=== PATIENT | male | born 1995 | race Two or more races ===

== ENCOUNTER 2016-11-27 04:44 | Emergency (ER) | payer MEDICAID, OTHER ==
[~2016-11-27] VITALS: Ht 144.8 cm; Wt 52.2 kg
[2016-11-27] MEDS ORDERED: ONDANSETRON HCL/PF 4 MG/2 ML VIAL IVP ONE (05:00)
[2016-11-27] MEDS ORDERED: HYDROMORPHONE INJ 2 MG/ML DISP.SYRIN IV ONE (05:00)
[2016-11-27] MEDS ORDERED: ONDANSETRON HCL/PF 4 MG/2 ML VIAL ONE ×2 (05:04→05:27)
[2016-11-27] MEDS ORDERED: HYDROMORPHONE 1 MG/1 ML DISP.SYRIN ONE (05:04)
[2016-11-27 05:24] LABS: BASOPHILS % (AUTO) 0.1 % (0.0-2.0); DIFF TOTAL % 100 %; EOSINOPHILS % (AUTO) 0.2 % (0.0-6.0); HEMATOCRIT 50 % (39-51); HEMOGLOBIN 16.8 g/dL (13.5-17.5); LYMPHOCYTES # (AUTO) 0.9 /CMM (0.8-4.8); LYMPHOCYTES % (AUTO) 7.1 % (20.0-44.0); MEAN CORPUSCULAR HEMOGLOBIN 32 PG (26.0-33.0); MEAN CORPUSCULAR HGB CONC 34 g/dl (31.0-36.0); MEAN CORPUSCULAR VOLUME 97 fL (80-96); MONOCYTES % (AUTO) 16.3 % (2.0-12.0); NEUTROPHILS # (AUTO) 9.2 /CMM (1.8-8.9); NEUTROPHILS % (AUTO) 76.3 % (43.0-81.0); PLATELET COUNT (AUTO) 211 /CMM (150-450); RED BLOOD CELL COUNT(AUTO) 5.18 MIL/uL (4.5-6.0); WHITE BLOOD COUNT (AUTO) 12.1 K/uL (4.3-11.0)
[2016-11-27] MEDS ORDERED: IV NS 0.9% 1,000 ML ONE (05:28)
[2016-11-27] MEDS ORDERED: IV SET PRIMARY 1 EA INFUS.SET MC ONE (05:28)
[2016-11-27 05:37] LABS: CALCIUM, SERUM 8.4 mg/dL (8.5-10.1); POTASSIUM 3.3 mmol/L (3.5-5.1)
[2016-11-27 05:42] LABS: PROTHROMBIN TIME 10.8 SECS (9.5-12.7)
[2016-11-27 05:44] LABS: ALBUMIN 3.7 g/dL (3.4-5.0); BILIRUBIN,DIRECT 0.1 mg/dL (0.0-0.2); BILIRUBIN,TOTAL 0.3 mg/dL (0.2-1.0); INDIRECT BILIRUBIN 0.2 mg/dL (0.0-1.1); TOTAL PROTEIN, SERUM 7.4 g/dL (6.4-8.2)
[2016-11-27] MEDS ORDERED: IV NS 0.9% 1,000 ML BAG IV ONE (06:00)
[2016-11-27] MEDS ORDERED: ONDANSETRON HCL/PF 4 MG/2 ML VIAL IV ONE (06:00)
[2016-11-27 06:19] VITALS: BP 118/76
[2016-11-27 10:28] LABS: BAND % (MANUAL) 3 % (0.0-5.0); LYMPHOCYTES % (MANUAL) 8 % (16-48)
[2016-11-27 10:29] LABS: EOSINOPHILS % (MANUAL) 4 % (0-4)
[2016-11-27 10:30] LABS: PLATELET ESTIMATE ADEQUATE
== END 2016-11-27 06:20 | disposition home or self-care (01) ==
LOC: ER 04:46
DX: K80.20 Calculus of gallbladder without cholecystitis without obstruction (principal)
CPT/HCPCS: 36415; 76705; 80048; 80076; 83690; 85025; 85730; 96361; 96374; 96375; 99285; A4606; J1170; J2405; J7030; Z7610

== ENCOUNTER 2018-01-10 04:47 | Emergency (ER) | payer MEDICAID, OTHER ==
[~2018-01-10] VITALS: Ht 149.9 cm; Wt 56.7 kg
--- NOTE | 2018-01-10 04:47 | NUR ---
BIBMOTHER; PT C/O EPIGASTRIC PAIN 04/27 WITH N/V/DIARRHEA X 2 HOURS. NO SOB. A/OX3 VSS NAD. WILL CONTINUE TO MONITOR FOR ANY CHANGES DURING THE SHIFT
--- NOTE | 2018-01-10 05:10 | NUR ---
VIOLET STARTED IV LINE 20G ON LEFT HAND
[2018-01-10] MEDS ORDERED: ONDANSETRON HCL/PF 4 MG/2 ML VIAL ONE ×2 (05:12→05:28)
[2018-01-10] MEDS ORDERED: ONDANSETRON HCL/PF 4 MG/2 ML VIAL IVP ONE (05:30)
[2018-01-10] MEDS ORDERED: IV NS 0.9% 1,000 ML BAG IV ONE (05:30)
[2018-01-10] MEDS ORDERED: ONDANSETRON HCL/PF 4 MG/2 ML VIAL IV ONE (05:30)
[2018-01-10 05:59] VITALS: BP 109/63
== END 2018-01-10 05:59 | disposition home or self-care (01) ==
LOC: ER 04:53
DX: K52.9 Noninfective gastroenteritis and colitis, unspecified (principal); Q90.9 Down syndrome, unspecified
CPT/HCPCS: 96361; 96374; 99284; A4606; J2405 ×4; Z7610

== ENCOUNTER 2018-01-10 09:27 | Emergency (ER) | payer MEDICAID ==
[~2018-01-10] VITALS: Ht 152.4 cm; Wt 46.7 kg
--- NOTE | 2018-01-10 09:40 | NUR ---
AAOX3, BB MOTHER: NAUSEA, VOMITING, ABDOMINAL PAIN, WEAKNESS, ABD PAIN WAS SEEN EARLIER TODAY FOR SAME REASON. RR IS EVEN AND UNLABORED WITH NAD NOTED. SKIN IS WARM AND DRY. AWAITING MD FOR EVAL.
[2018-01-10 09:50] VITALS: BP 114/74
--- NOTE | 2018-01-10 10:27 | NUR ---
Mom does not wish to proceed with medical care recommended by . Mom was informed for possible complications, up to and including , which could occur as a result of leaving the hospital at this time. Mom verbalizes understanding of risks involved due to leaving against medical advice. Mom refused to sign the AMA form. Mom states that its taking too long and we just only check the blood pressure of the patient which is unnecessary.
== END 2018-01-10 10:37 | disposition left against medical advice (07) ==
LOC: ER 09:28
DX: Z53.21 Procedure and treatment not carried out due to patient leaving prior to being seen by health care provider (principal)
CPT/HCPCS: A4606; Z7610

== ENCOUNTER 2022-05-10 05:23 | Emergency (ER) | payer MEDICAID, OTHER ==
[~2022-05-10] VITALS: Ht 152.4 cm; Wt 46.7 kg
--- NOTE | 2022-05-10 05:45 | NUR ---
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 PATIENT WITH MOTHER AT BEDSIDE IN BED 07 AWITING MD MEADOWS.
[2022-05-10] MEDS ORDERED: ONDANSETRON HCL/PF 4 MG/2 ML VIAL ONE (05:48)
--- NOTE | 2022-05-10 06:00 | NUR ---
BLOOD COLLECTED AND SENT TO LAB
[2022-05-10] MEDS: ONDANSETRON HCL/PF 4 MG/2 ML VIAL IVP ONE (06:03)
[2022-05-10] MEDS: IV NS 0.9% 1,000 ML BAG IV ONE (06:03)
[2022-05-10 06:48] LABS: BASOPHILS % (AUTO) 0.2 % (0.0-2.0); EOSINOPHILS % (AUTO) 0.2 % (0.0-6.0); HEMATOCRIT 47 % (39-51); HEMOGLOBIN 16.2 g/dL (13.5-17.5); LYMPHOCYTES # (AUTO) 1.6 K/uL (0.8-4.8); LYMPHOCYTES % (AUTO) 11.5 % (20.0-44.0); MEAN CORPUSCULAR HGB CONC 35 g/dl (31.0-36.0); MEAN CORPUSCULAR VOLUME 96 fL (80-96); MONOCYTES # (AUTO) 0.8 K/uL (0.1-1.30); MONOCYTES % (AUTO) 5.7 % (2.0-12.0); NEUTROPHILS # (AUTO) 11.2 K/uL (1.8-8.9); NEUTROPHILS % (AUTO) 82.4 % (43.0-81.0); PLATELET COUNT (AUTO) 240 K/uL (150-450); RED BLOOD CELL COUNT(AUTO) 4.88 MIL/uL (4.5-6.0); WHITE BLOOD COUNT (AUTO) 13.5 K/uL (4.3-11.0)
[2022-05-10 07:13] LABS: ALBUMIN 3.7 g/dL (3.4-5.0); BILIRUBIN,TOTAL 0.2 mg/dL (0.2-1.0); CALCIUM, SERUM 8.7 mg/dL (8.5-10.1); CREATININE 1.2 mg/dL (0.6-1.3); POTASSIUM 3.3 mmol/L (3.5-5.1); TOTAL PROTEIN, SERUM 8.1 g/dL (6.4-8.2)
[2022-05-10] MEDS ORDERED: ONDA4TAB5 PO (08:41)
[2022-05-10] MEDS ORDERED: METOCLOPRAMIDE HCL 10 MG/2 ML VIAL ONE (08:55)
[2022-05-10] MEDS: METOCLOPRAMIDE HCL 10 MG/2 ML VIAL IV ONE (08:58)
--- NOTE | 2022-05-10 09:13 | NUR ---
IV removed. Catheter intact and site benign. Pressure and 4x4 applied to site. No bleeding noted.Patient discharged to home with mother in stable condition. Written and verbal after care instructions given. Mother verbalizes understanding of instruction.
[2022-05-10 09:14] VITALS: BP 119/72
[2022-05-11] MEDS ORDERED: METR500T PO (03:35)
[2022-05-11] MEDS ORDERED: ONDA4TAB5 PO (03:35)
== END 2022-05-10 09:14 | disposition home or self-care (01) ==
LOC: ER 05:24
DX: R11.2 Nausea with vomiting, unspecified (principal); K21.9 Gastro-esophageal reflux disease without esophagitis; Z90.49 Acquired absence of other specified parts of digestive tract
CPT/HCPCS: 36415; 80048; 80076; 83690; 85025; 96361; 96365; 96375; 99284; J2405; J2765; J7030 ×2

== ENCOUNTER 2022-05-10 22:49 | Emergency (ER) | payer MEDICAID, OTHER ==
[~2022-05-10] VITALS: Ht 152.4 cm; Wt 46.7 kg
[~2022-05-10 22:49] MED LIST: ONDA4TAB5 PO
--- NOTE | 2022-05-10 23:50 | NUR ---
BIBMOTHER C/O VOMITING AND DIARRHEA TODAY. SEEN AT [facility] THIS MORNING. PATIENT ALERT IN BED 17 AWAITING MD MEADOWS. PATIENTS MOTHER AT BEDSIDE. ON POX AND MONITOR.
[2022-05-11] MEDS ORDERED: ONDANSETRON HCL/PF 4 MG/2 ML VIAL ONE
[2022-05-11] MEDS ORDERED: ONDANSETRON HCL/PF 4 MG/2 ML VIAL IVP ONE
[2022-05-11] MEDS ORDERED: IV NS 0.9% 1,000 ML BAG IV ONE
--- NOTE | 2022-05-11 00:09 | NUR ---
COVID SWAB DONE AND SENT TO LAB
--- NOTE | 2022-05-11 00:09 | NUR ---
BLOOD COLLECTED AND SENT TO LAB
[2022-05-11 00:30] LABS: BASOPHILS % (AUTO) 0.2 % (0.0-2.0); HEMATOCRIT 43 % (39-51); HEMOGLOBIN 14.7 g/dL (13.5-17.5); LYMPHOCYTES # (AUTO) 0.9 K/uL (0.8-4.8); LYMPHOCYTES % (AUTO) 7.3 % (20.0-44.0); MEAN CORPUSCULAR HGB CONC 34 g/dl (31.0-36.0); MEAN CORPUSCULAR VOLUME 96 fL (80-96); MONOCYTES # (AUTO) 0.8 K/uL (0.1-1.30); MONOCYTES % (AUTO) 6.7 % (2.0-12.0); NEUTROPHILS # (AUTO) 10.2 K/uL (1.8-8.9); NEUTROPHILS % (AUTO) 85.8 % (43.0-81.0); PLATELET COUNT (AUTO) 242 K/uL (150-450); RED BLOOD CELL COUNT(AUTO) 4.48 MIL/uL (4.5-6.0); WHITE BLOOD COUNT (AUTO) 11.9 K/uL (4.3-11.0)
--- NOTE | 2022-05-11 00:31 | NUR ---
PATIENT AT CT.
[2022-05-11 00:50] LABS: CALCIUM, SERUM 8.1 mg/dL (8.5-10.1)
[2022-05-11 00:55] LABS: ALBUMIN 3.4 g/dL (3.4-5.0); BILIRUBIN,DIRECT 0.1 mg/dL (0.0-0.2); BILIRUBIN,TOTAL 0.5 mg/dL (0.2-1.0); TOTAL PROTEIN, SERUM 7.6 g/dL (6.4-8.2)
--- NOTE | 2022-05-11 01:02 | NUR ---
URINE COLLECTED AND SENT TO LAB
[2022-05-11 01:35] LABS: BILIRUBIN,URINE NEGATIVE (NEGATIVE); COLOR,URINE YELLOW (YELLOW); LEUKOCYTE ESTERASE ,URINE NEGATIVE (NEGATIVE); NITRITE, URINE NEGATIVE (NEGATIVE); PROTEIN,URINE NEGATIVE (NEGATIVE); UGLUCOSE NEGATIVE (NEGATIVE); UROBILINOGEN,URINE 0.2 EU/dL (0.2)
[2022-05-11] MEDS ORDERED: ONDA4TAB5 PO (03:35)
[2022-05-11] MEDS ORDERED: METR500T PO (03:35)
[2022-05-11] MEDS ORDERED: METRONIDAZOLE 500 MG TABLET ONE (03:44)
[2022-05-11] MEDS ORDERED: POTASSIUM CHLORIDE 20 MEQ POWDER PACKET ONE (03:50)
[2022-05-11] MEDS ORDERED: POTASSIUM CHLORIDE 20 MEQ POWDER PACKET PO ONE (04:00)
[2022-05-11] MEDS ORDERED: METRONIDAZOLE 500 MG TABLET PO ONE (04:00)
--- NOTE | 2022-05-11 04:00 | NUR ---
IV removed. Catheter intact and site benign. Pressure and 4x4 applied to site. No bleeding noted.
--- NOTE | 2022-05-11 04:00 | NUR ---
Patient discharged to home in stable condition. Written and verbal after care instructions given. Patient verbalizes understanding of instruction.
[2022-05-11 04:02] VITALS: BP 125/72
== END 2022-05-11 04:03 | disposition home or self-care (01) ==
LOC: ER 22:54
DX: K52.9 Noninfective gastroenteritis and colitis, unspecified (principal); E87.6 Hypokalemia; Z90.49 Acquired absence of other specified parts of digestive tract; Z20.822 Contact with and (suspected) exposure to COVID-19; Q90.9 Down syndrome, unspecified; K21.9 Gastro-esophageal reflux disease without esophagitis
CPT/HCPCS: 36415; 74176; 80048; 80076; 81003; 83690; 85025; 85730; 87426; 96361; 96374; 99284; C9803; J2405; J7030 ×2

== ENCOUNTER 2023-01-06 23:12 | Emergency (ER) | payer OTHER ==
[~2023-01-06] VITALS: Ht 152.4 cm; Wt 60.3 kg
[~2023-01-06 23:12] MED LIST changes: +METR500T PO
--- NOTE | 2023-01-07 | NUR ---
BIBMOTHER TO ER BED 7. AAOX3. NOT IN RESP DISTRESS. AMBULATORY. BROUGHT IN FOR NAUSEA AND VOMITING STARTED TODAY. PT DENIES ANY PAIN. AWAITING MD FOR EVAL.
[2023-01-07] MEDS ORDERED: METOCLOPRAMIDE HCL 10 MG/2 ML VIAL IV ONE (01:30)
[2023-01-07] MEDS ORDERED: IV NS 0.9% 1,000 ML BAG IV ONE (01:30)
[2023-01-07] MEDS ORDERED: FAMOTIDINE/PF INJ 20 MG/2 ML VIAL IV ONE ×2 (01:30→01:40)
[2023-01-07] MEDS ORDERED: METOCLOPRAMIDE HCL 10 MG/2 ML VIAL ONE (01:40)
[2023-01-07 02:11] LABS: EOSINOPHILS % (AUTO) 0.1 % (0.0-6.0); HEMATOCRIT 47 % (39-51); HEMOGLOBIN 16.1 g/dL (13.5-17.5); LYMPHOCYTES # (AUTO) 0.3 K/uL (0.8-4.8); LYMPHOCYTES % (AUTO) 2.4 % (20.0-44.0); MEAN CORPUSCULAR HGB CONC 34 g/dl (31.0-36.0); MEAN CORPUSCULAR VOLUME 97 fL (80-96); MONOCYTES # (AUTO) 0.6 K/uL (0.1-1.30); MONOCYTES % (AUTO) 4.8 % (2.0-12.0); NEUTROPHILS # (AUTO) 12.4 K/uL (1.8-8.9); NEUTROPHILS % (AUTO) 92.7 % (43.0-81.0); PLATELET COUNT (AUTO) 216 K/uL (150-450); RED BLOOD CELL COUNT(AUTO) 4.88 MIL/uL (4.5-6.0); WHITE BLOOD COUNT (AUTO) 13.4 K/uL (4.3-11.0)
--- NOTE | 2023-01-07 02:33 | NUR ---
URINE COLLECTED AND SENT TO LAB
[2023-01-07 03:02] LABS: ALBUMIN 3.5 g/dL (3.4-5.0); BILIRUBIN,DIRECT 0.2 mg/dL (0.0-0.2); BILIRUBIN,TOTAL 0.6 mg/dL (0.2-1.0); CALCIUM, SERUM 8.5 mg/dL (8.5-10.1); POTASSIUM 3.5 mmol/L (3.5-5.1); TOTAL PROTEIN, SERUM 7.6 g/dL (6.4-8.2)
[2023-01-07] MEDS ORDERED: PROM25SU10 RC (03:31)
--- NOTE | 2023-01-07 03:35 | NUR ---
PO CHALLENGE TOLERATED BY THE PATIENT. DENIES ANY NAUSEA AFTER DRINKING WATER.
--- NOTE | 2023-01-07 03:45 | NUR ---
Patient discharged to home in stable condition under the care of his mother. Written and verbal after care instructions given to the mother. Patient's mother verbalizes understanding of instruction.IV removed. Catheter intact and site benign. Pressure and 4x4 applied to site. No bleeding noted. Pt ambulatory with a steady gait
[2023-01-07 03:51] VITALS: BP 118/75
[2023-01-07 04:18] LABS: BILIRUBIN,URINE NEGATIVE (NEGATIVE); COLOR,URINE YELLOW (YELLOW); LEUKOCYTE ESTERASE ,URINE NEGATIVE (NEGATIVE); NITRITE, URINE NEGATIVE (NEGATIVE); PROTEIN,URINE NEGATIVE (NEGATIVE); UGLUCOSE NEGATIVE (NEGATIVE); UROBILINOGEN,URINE 0.2 EU/dL (0.2)
== END 2023-01-07 03:52 | disposition home or self-care (01) ==
LOC: ER 23:14
DX: R11.2 Nausea with vomiting, unspecified (principal); Q90.9 Down syndrome, unspecified; K21.9 Gastro-esophageal reflux disease without esophagitis; Z90.49 Acquired absence of other specified parts of digestive tract; Z79.899 Other long term (current) drug therapy
CPT/HCPCS: 99284; 96374; 96361; 96375; 85025; 80048; 83690; 80076; 81003; 36415; J3490; J2765; J7030

== ENCOUNTER 2023-12-31 16:44 | Emergency (ER) | payer OTHER ==
[~2023-12-31] VITALS: Ht 167.6 cm; Wt 58.5 kg
[~2023-12-31 16:44] MED LIST changes: +PROM25SU10 RC
[2023-12-31] MEDS: IBUPROFEN 400 MG TABLET PO ONE (18:00)
[2023-12-31] MEDS ORDERED: IBUPROFEN 400 MG TABLET ONE (18:11)
[2023-12-31 19:45] VITALS: BP 127/85; TEMP 98.4; O2SAT 98
== END 2023-12-31 19:46 | disposition home or self-care (01) ==
LOC: ER 16:48
DX: M79.604 Pain in right leg (principal); K21.9 Gastro-esophageal reflux disease without esophagitis; Z79.899 Other long term (current) drug therapy; Z90.49 Acquired absence of other specified parts of digestive tract
CPT/HCPCS: 73564-TC; 93971-TC

== ENCOUNTER 2024-10-13 00:23 | Emergency (ER) | payer OTHER ==
[~2024-10-13] VITALS: Ht 144.8 cm; Wt 67.6 kg
[2024-10-13] MEDS ORDERED: ONDANSETRON HCL/PF 4 MG/2 ML VIAL ONE (01:03)
[2024-10-13] MEDS: ONDANSETRON HCL/PF - ER 4 MG/2 ML VIAL IV ONE (01:10)
[2024-10-13] MEDS: IV NS 0.9% 1,000 ML IV ONE (01:11)
[2024-10-13 01:17] LABS: EOSINOPHILS % (AUTO) 0.1 % (0.0-6.0); HEMATOCRIT 45 % (39-51); HEMOGLOBIN 15.9 g/dL (13.5-17.5); LYMPHOCYTES # (AUTO) 0.6 K/uL (0.8-4.8); LYMPHOCYTES % (AUTO) 4.9 % (20.0-44.0); MEAN CORPUSCULAR HEMOGLOBIN 34 PG (26.0-33.0); MEAN CORPUSCULAR HGB CONC 35 g/dl (31.0-36.0); MEAN CORPUSCULAR VOLUME 96 fL (80-96); MONOCYTES # (AUTO) 0.8 K/uL (0.1-1.30); MONOCYTES % (AUTO) 5.9 % (2.0-12.0); NEUTROPHILS # (AUTO) 11.5 K/uL (1.8-8.9); NEUTROPHILS % (AUTO) 89.1 % (43.0-81.0); PLATELET COUNT (AUTO) 220 K/uL (150-450); RED BLOOD CELL COUNT(AUTO) 4.72 MIL/uL (4.5-6.0); RED CELL DISTRIBUTION WIDTH 14.3 % (11.5-15.0); WHITE BLOOD COUNT (AUTO) 12.9 K/uL (4.3-11.0)
[2024-10-13 01:24] LABS: CALCIUM, SERUM 8.3 mg/dL (8.5-10.1); CARBON DIOXIDE 27 mmol/L (21-32); CHLORIDE 106 mmol/L (98-107); GLUCOSE 158 mg/dL (74-106); POTASSIUM 3.1 mmol/L (3.5-5.1); SODIUM SERUM 141 mmol/L (136-145); UREA NITROGEN, BLOOD 14 mg/dL (7-18)
[2024-10-13 01:29] LABS: ALANINE AMINOTRANSFERASE 125 U/L (12-78); ALBUMIN 3.4 g/dL (3.4-5.0); ALKALINE PHOSPHATASE 102 U/L (46-116); ASPARTATE AMINOTRANSFERASE 45 U/L (15-37); BILIRUBIN,TOTAL 0.5 mg/dL (0.2-1.0); LIPASE 32 U/L (16-77); TOTAL PROTEIN, SERUM 7.4 g/dL (6.4-8.2)
[2024-10-13] MEDS ORDERED: PANTOPRAZOLE 40 MG VIAL ONE (01:30)
[2024-10-13 01:33] LABS: ALCOHOL, BLOOD < 3 mg/dL (0-10)
[2024-10-13] MEDS: PANTOPRAZOLE 40 MG VIAL IV ONE (01:42)
[2024-10-13] MEDS ORDERED: PANT20TA2 PO (02:14)
[2024-10-13] MEDS ORDERED: ONDA4TAB5 PO (02:14)
[2024-10-13 02:23] VITALS: BP 120/70; TEMP 98.3; O2SAT 98
[2024-10-13] MEDS ORDERED: POTASSIUM CHLORIDE 20 MEQ TAB.PRT.SR PO ONE (02:30)
== END 2024-10-13 02:24 | disposition home or self-care (01) ==
LOC: ER 00:26
DX: K29.70 Gastritis, unspecified, without bleeding (principal); K21.9 Gastro-esophageal reflux disease without esophagitis; Q90.9 Down syndrome, unspecified; Z79.899 Other long term (current) drug therapy; Z90.49 Acquired absence of other specified parts of digestive tract
CPT/HCPCS: 99285; 96374; 96361; 96375; 74176; 85025; 83690; 36415; 80053; 80320; J2405; J7030; J2470; G0480

== ENCOUNTER 2025-01-02 14:47 | Emergency (ER) | payer OTHER ==
[~2025-01-02] VITALS: Ht 149.9 cm; Wt 58.1 kg
[~2025-01-02 14:47] MED LIST changes: +PANT20TA2 PO
[2025-01-02 14:53] VITALS: BP 125/63; TEMP 98.2
[2025-01-02] MEDS ORDERED: AMOX-430 PO (15:50)
[2025-01-02 15:55] VITALS: O2SAT 100
== END 2025-01-02 15:56 | disposition home or self-care (01) ==
LOC: ER 14:52
DX: J06.9 Acute upper respiratory infection, unspecified (principal); H92.03 Otalgia, bilateral; K21.9 Gastro-esophageal reflux disease without esophagitis; Q90.9 Down syndrome, unspecified; Z79.899 Other long term (current) drug therapy; Z90.49 Acquired absence of other specified parts of digestive tract; Z20.822 Contact with and (suspected) exposure to COVID-19